=== PATIENT | male | born 1960 | race Hispanic/Latino ===

== ENCOUNTER → 2022-07-07 | Outpatient (CLI) | payer BC | END | disposition home or self-care (01) | LOC: SHCH 15:48 | PROVIDERS: ATTEND Student in an Organized Health Care Education/Training Program | DX: I48.0 Paroxysmal atrial fibrillation (principal); I34.0 Nonrheumatic mitral (valve) insufficiency | CPT/HCPCS: 93306 ==

== ENCOUNTER → 2024-07-01 | Outpatient (CLI) | payer BC | END | disposition home or self-care (01) | LOC: SHCH 13:44 | PROVIDERS: ATTEND Student in an Organized Health Care Education/Training Program | DX: R06.02 Shortness of breath (principal) | CPT/HCPCS: 93306 ==